=== PATIENT | male | born 1950 | race Caucasian/White ===

== ENCOUNTER 2021-06-02 05:57 | Day surgery (SDC) | payer MEDICARE, BC ==
[2021-05-27 14:15] LABS: BASOPHILS % (AUTO) 0.5 % (0-1); EOSINOPHILS # (AUTO) 0.3 X10'3 (0-0.9); EOSINOPHILS % (AUTO) 4.8 % (0-6); LYMPHOCYTES % (AUTO) 32.4 % (21-51); MEAN CORPUSCULAR HEMOGLOBIN 29.7 PG (27.0-31.0); MEAN CORPUSCULAR HGB CONC 33.3 g/dL (33.0-36.5); MEAN CORPUSCULAR VOLUME 89.3 FL (78-98); MEAN PLATELET VOLUME 7.4 FL (7.4-10.4); MONOCYTES # (AUTO) 0.4 X10'3 (0-0.9); MONOCYTES % (AUTO) 6.7 % (2-12); NEUTROPHILS # (AUTO) 3.4 X10'3 (1.8-7.7); NEUTROPHILS % (AUTO) 55.6 % (42-75); PRE OP HEMATOCRIT 39.7 % (42.0-52.0); PRE OP HEMOGLOBIN 13.2 g/dL (14.0-17.9); PRE OP PLATELET COUNT 288 X10'3 (140-440); RED BLOOD COUNT 4.44 X10'6 (4.70-6.10); RED CELL DISTRIBUTION WIDTH 15.6 % (11.5-14.5)
[2021-05-27 14:43] LABS: ALBUMIN 3.4 G/DL (3.4-5.0); ALBUMIN/GLOBULIN RATIO 1.3 (1.1-1.5); ALKALINE PHOSPHATASE 64 IU/L (46-116); BLOOD UREA NITROGEN 21 MG/DL (7-18); BUN/CREATININE RATIO 21.4 (5.4-32.0); CHLORIDE 107 MMOL/L (99-107); CREATININE 0.98 MG/DL (0.60-1.10); PRE OP ALT 27 U/L (30-65); PRE OP ANION GAP 7 (8-16); PRE OP AST 21 U/L (10-37); PRE OP BILIRUB, TOTAL 0.4 MG/DL (0.0-1.0); PRE OP GLUCOSE 96 MG/DL (70-104); PRE OP POTASSIUM 4.2 MMOL/L (3.4-5.1); PRE OP SODIUM 144 MMOL/L (135-145); TOTAL CARBON DIOXIDE 30.2 MMOL/L (24-32); TOTAL PROTEIN 6.1 G/DL (6.4-8.2); eGFR 75 ML/MIN
[2021-05-27 15:04] LABS: CALCIUM 8.4 MG/DL (8.5-10.1)
[~2021-06-02] VITALS: Ht 170.2 cm; Wt 103.2 kg
[2021-06-02] VITALS (14 sets, daily range): BP systolic 120–173; BP diastolic 58–95
[~2021-06-02 05:57] MED LIST: EPIN0.3A3 IM; LOSA100T57 PO; clindamycin-Cleocin 900mg/D5W 50 ML IV ONE; famotidine 20mg tablet PO ONE; meperidine/PF 25mg/ml syringe IV PRN; morphine 2 MG/ML inj. syringe IV PRN; morphine 4 MG/ML inj SYRINge IV PRN; ondansetron/PF 4mg/2ml inj IV PRN; proCHLORperazine 10 MG/2 ml inj IV PRN; ringers solution, lacted 1,000 ML IV SCH
[2021-06-02] MEDS ORDERED: LIDOcaine 1% 30ml preserv. free vial ONE (06:47)
[2021-06-02] MEDS ORDERED: BUPIVAcaine 0.5% inj/PF 30 ML ONE (06:47)
[2021-06-02] MEDS ORDERED: BUPIVAcaine 0.5% inj/PF 30 ml vial IJ ONE (07:47)
[2021-06-02] MEDS ORDERED: fentaNYL /PF 50mcg/ml 5ml ampule ONE (08:21)
[2021-06-02] MEDS ORDERED: rocuronium 10mg/ml inj IV ONE (08:21)
[2021-06-02] MEDS ORDERED: midazolam 1 mg/ML 2ml injection ONE (08:21)
[2021-06-02] MEDS ORDERED: propofol inj 20 ML IV ONE (08:21)
[2021-06-02] MEDS ORDERED: dexamethasone sod phosphate 4mg/ml inj. ONE (08:37)
[2021-06-02] MEDS ORDERED: ePHEDrine 50MG/ML INJ. ONE (08:46)
[2021-06-02] MEDS ORDERED: morphine 4 MG/ML inj SYRINge IV PRN (09:05)
[2021-06-02] MEDS ORDERED: morphine 2 MG/ML inj. syringe IV PRN (09:05)
[2021-06-02] MEDS ORDERED: ondansetron/PF 4mg/2ml inj IV PRN (09:05)
[2021-06-02] MEDS ORDERED: proCHLORperazine 10 MG/2 ml inj IV PRN (09:05)
[2021-06-02] MEDS ORDERED: meperidine/PF 25mg/ml syringe IV PRN ×3 (09:05)
[2021-06-02] MEDS ORDERED: ringers solution, lacted 1,000 ML IV SCH (09:05)
[2021-06-02] MEDS ORDERED: glycopyrrolate 0.2mg/ml inj ONE (09:27)
[2021-06-02] MEDS ORDERED: ondansetron/PF 4mg/2ml inj ONE (09:27)
[2021-06-02] MEDS ORDERED: neostigmine methylsulfate 1 MG/ML 10ml vial ONE (09:27)
--- NOTE | 2021-06-02 09:43 | NUR ---
Received from OR via [facility] , accompanied by Anesthesiologist DR VIEIRA and report given by Anesthesiolgist. 10 LITERS ON A MASK, LAP SITES X 3, 20 G RIGHT FOREARM, VSS, NO PAIN Addendum: 06/02/21 at 0948 by Heather Rivera RN Amended: Links added.
[2021-06-02] MEDS ORDERED: HYDROcodone/acetaminophen 5mg/325mg tablet PO PRN (09:50)
--- NOTE | 2021-06-02 13:18 | NUR ---
PATIENT MET DISCHARGE CRITERIA. PATIENT VOIDED 300 POST OP, VSS, IV DC'D NO COMPLICATIONS, VERBALIZED AN UNDERSTANDING OF POST OP INSTRUCTIONS. STATED NO PAIN ON DISCHARGE Addendum: 06/02/21 at 1335 by Heather Rivera RN Amended: Links added.
== END 2021-06-02 13:13 | disposition home or self-care (01) ==
LOC: PAS 05:57
PROVIDERS: ATTEND Surgery
DX: K40.90 Unilateral inguinal hernia, without obstruction or gangrene, not specified as recurrent (principal); G47.30 Sleep apnea, unspecified; I10 Essential (primary) hypertension; Z88.0 Allergy status to penicillin; Z79.899 Other long term (current) drug therapy; Z98.890 Other specified postprocedural states; Z91.030 Bee allergy status; Z20.822 Contact with and (suspected) exposure to COVID-19
CPT/HCPCS: 36415; 49650; 80053; 82948; 85025; 93005; C1781; J1100; J2250; J2405; J2704; J2710; J3010; J3490; J7030; J7120; S0020; U0003; U0005; Z7506; Z7508; Z7512; A4215; A4618